=== PATIENT | male | born 1990 | race Caucasian/White ===

== ENCOUNTER 2018-04-24 | Emergency (ER) | payer SELFPAY ==
[~2018-04-24] VITALS: Ht 177.8 cm; Wt 86.2 kg
[2018-04-24 00:41] VITALS: BP 142/77
== END 2018-04-24 02:34 | disposition home or self-care (01) ==
LOC: ER 00:10
DX: S61.411A Laceration without foreign body of right hand, initial encounter (principal); Z98.890 Other specified postprocedural states; W26.0XXA Contact with knife, initial encounter; Y93.89 Activity, other specified; Y92.89 Other specified places as the place of occurrence of the external cause; Y99.8 Other external cause status
CPT/HCPCS: A6402